=== PATIENT | male | born 1970 | race Caucasian/White ===

== ENCOUNTER 2018-02-15 15:46 | Emergency (ER) | payer BC, OTHER ==
[~2018-02-15] VITALS: Ht 182.9 cm; Wt 86.2 kg
[2018-02-15 15:46] VITALS: BP 136/76
[2018-02-15] MEDS ORDERED: Acetaminophen 500mg (ES) tab ORAL ONE (16:00)
[2018-02-15] MEDS ORDERED: Ketorolac 30mg Inj IV ONE (16:15)
--- NOTE | 2018-02-15 16:53 | Diagnostic Imaging Report ---
Indication: Cough Technique: One view of the chest Comparison: none Findings: Lungs and pleural spaces are clear. Heart size is normal Impression: No acute process
[2018-02-15 16:56] LABS: BASOPHILS % (AUTO) 0.8 % (0.0-2.0); HEMOGLOBIN 16.2 G/DL (14.2-18.0); LYMPHOCYTES % (AUTO) 5.5 % (20.0-45.0); MEAN CORPUSCULAR VOLUME 86 FL (80-99); MONOCYTES % (AUTO) 10.6 % (1.0-10.0); NEUTROPHILS % (AUTO) 83.2 % (45.0-75.0); PLATELET COUNT 209 K/UL (150-450); RED BLOOD COUNT 5.47 M/UL (4.70-6.10); RED CELL DISTRIBUTION WIDTH 10.4 % (11.6-14.8); WHITE BLOOD COUNT 9.1 K/UL (4.8-10.8)
[2018-02-15 17:08] LABS: ANION GAP 12 mmol/L (5-15); BLOOD UREA NITROGEN 12 mg/dL (7-18); CALCIUM 8.6 MG/DL (8.5-10.1); CARBON DIOXIDE 24 MMOL/L (21-32); CHLORIDE 101 MMOL/L (98-107); POTASSIUM 3.5 MMOL/L (3.5-5.1); SODIUM 137 MMOL/L (136-145)
[2018-02-15 17:13] LABS: ALANINE AMINOTRANSFERASE 45 U/L (12-78); ALBUMIN 3.8 G/DL (3.4-5.0); ALKALINE PHOSPHATASE 56 U/L (46-116); ASPARTATE AMINO TRANSFERASE 29 U/L (15-37); BILIRUBIN,TOTAL 0.8 MG/DL (0.2-1.0)
--- NOTE | 2018-02-15 17:58 | Emergency Room Report ---
History of Present Illness General Chief Complaint: Flu Like Symptoms Source: Patient Present Illness HPI 47-year-old male presents to the emergency department complaining of fever, chills, body aches 3 days and new onset of cough. Denies recent travel or ill contacts. Patient states he is not up-to-date with his flu vaccination. Patient reports history of bronchitis in the past. Patient denies history of immune compromise he states that he had been seen at [facility] before with bronchitis and "blood problem ". He is unable to give further details regarding the issue with his blood. Patient denies past medical history otherwise. Also reports having a 5 out of 10 severity headache he denies neck pain or stiffness and denies photophobia. He reports some decreased appetite and nausea, but no vomiting. Patient denies sore throat or ear pain. Patient reports some nasal congestion but states his body aches and fever and cough are his most prominent symptoms. Allergies: Coded Allergies: No Known Allergies (Unverified , 02/15/18) Patient History Past Medical History: see triage record Past Surgical History: none Pertinent Family History: none Reviewed Nursing Documentation: PMH: Agreed; PSxH: Agreed Nursing Documentation-PMH Past Medical History: No History, Except For Hx Asthma: Yes Review of Systems All Other Systems: negative except mentioned in HPI Physical Exam Vital Signs Date Time Temp Pulse Resp B/P (MAP) Pulse Ox O2 Delivery O2 Flow Rate FiO2 02/15/18 15:40 104.2 86 16 140/80 98 Room Air Sp02 EP Interpretation: reviewed, normal General Appearance: alert, GCS 15, non-toxic, moderate distress Head: normocephalic, atraumatic Eyes: bilateral eye normal inspection, bilateral eye PERRL ENT: hearing grossly normal, normal voice Neck: full range of motion, no meningismus Respiratory: chest non-tender, lungs clear, normal breath sounds, no rhonchi, no respiratory distress, no accessory muscle use, no wheezing, speaking full sentences Cardiovascular #1: regular rate, rhythm Gastrointestinal: non tender, soft Rectal: deferred Genitourinary: normal inspection Musculoskeletal: back normal, normal range of motion, non-tender Neurologic: alert, oriented x3, responsive, motor strength/tone normal, sensory intact, speech normal, grossly normal Psychiatric: judgement/insight normal Skin: normal color, no rash, warm/dry, well hydrated Lymphatic: no adenopathy Medical Decision Making PA Attestation Dr. Rayo is my supervising Physician whom patient management has been discussed with. Diagnostic Impression: Primary Impression: Influenza A ER Course 47-year-old male presents to the emergency department complaining of fever, chills, body aches 3 days and new onset of cough. Denies recent travel or ill contacts. Patient states he is not up-to-date with his flu vaccination. Patient reports history of bronchitis in the past. Patient denies history of immune compromise he states that he had been seen at [facility] before with bronchitis and "blood problem ". He is unable to give further details regarding the issue with his blood. Patient denies past medical history otherwise. Also reports having a 5 out of 10 severity headache he denies neck pain or stiffness and denies photophobia. He reports some decreased appetite and nausea, but no vomiting. Patient denies sore throat or ear pain. Patient reports some nasal congestion but states his body aches and fever and cough are his most prominent symptoms. Ddx considered but are not limited to URI, pneumonia, PE, strep pharyngitis, meningitis, influenza, OM/OE just to name a few. Vital signs: Pt. is Febrile with fever of 104 on presentation, otherwise WNL H&PE are most consistent with Viral Syndrome suspicious for Influenza - no meningeal signs, Lungs are clear and oropharynx is not involved, no evidence of bacterial infection at this time. ORDERS: CBC, CMP: unremarkable, electrolytes ok and no leukocytosis -Blood Cultures: Pending -Influenza A & B antigen: POSITIVE for INFLUENZA A ED INTERVENTIONS: - 1 Liter NS -Tylenol PO -Toradol IV - Zofran IV --PT. EDUCATION: --I discussed with this patient that I will be prescribing Tamiflu which is an antiviral. This medication is not always covered by insurance and is not always available at pharmacies. I educated patient that this medication has been shown to reduce symptoms by 1 day, and if unable to obtain there is no alternative, and to continue conservative treatment, otherwise return to the ED with worsening or new symptoms. DISCHARGE: At this time pt. is stable for d/c to home. Will provide printed patient care instructions, and any necessary prescriptions. Care plan and follow up instructions have been discussed with the patient prior to discharge. Labs Test 02/15/18 16:25 White Blood Count 9.1 K/UL (4.8-10.8) Red Blood Count 5.47 M/UL (4.70-6.10) Hemoglobin 16.2 G/DL (14.2-18.0) Hematocrit 47.0 % (42.0-52.0) Mean Corpuscular Volume 86 FL (80-99) Mean Corpuscular Hemoglobin 29.7 PG (27.0-31.0) Mean Corpuscular Hemoglobin Concent 34.5 G/DL (32.0-36.0) Red Cell Distribution Width 10.4 % (11.6-14.8) Platelet Count 209 K/UL (150-450) Mean Platelet Volume 6.9 FL (6.5-10.1) Neutrophils (%) (Auto) 83.2 % (45.0-75.0) Lymphocytes (%) (Auto) 5.5 % (20.0-45.0) Monocytes (%) (Auto) 10.6 % (1.0-10.0) Eosinophils (%) (Auto) 0.0 % (0.0-3.0) Basophils (%) (Auto) 0.8 % (0.0-2.0) Sodium Level 137 MMOL/L (136-145) Potassium Level 3.5 MMOL/L (3.5-5.1) Chloride Level 101 MMOL/L (98-107) Carbon Dioxide Level 24 MMOL/L (21-32) Anion Gap 12 mmol/L (5-15) Blood Urea Nitrogen 12 mg/dL (7-18) Creatinine 1.0 MG/DL (0.55-1.30) Estimat Glomerular Filtration Rate > 60 mL/min (>60) Glucose Level 108 MG/DL (74-106) Lactic Acid Level 1.30 mmol/L (0.4-2.0) Calcium Level 8.6 MG/DL (8.5-10.1) Total Bilirubin 0.8 MG/DL (0.2-1.0) Aspartate Amino Transf (AST/SGOT) 29 U/L (15-37) Alanine Aminotransferase (ALT/SGPT) 45 U/L (12-78) Alkaline Phosphatase 56 U/L (46-116) Total Protein 7.6 G/DL (6.4-8.2) Albumin 3.8 G/DL (3.4-5.0) Globulin 3.8 g/dL Albumin/Globulin Ratio 1.0 (1.0-2.7) Last Vital Signs Date Time Temp Pulse Resp B/P (MAP) Pulse Ox O2 Delivery O2 Flow Rate FiO2 02/15/18 17:02 102.6 02/15/18 15:46 84 18 136/76 99 Room Air Disposition: HOME, SELF-CARE Condition: Stable Scripts Methocarbamol* (ROBAXIN-750*) 750 Mg Tablet 750 MG PO TID for 7 Days, #21 TAB 0 Refills Prov: Radha Rosales 02/15/18 D-Methorphan Hb/Prometh Hcl* (PROMETHAZINE-DM SYRUP*) 118 Ml Syrup 5 ML ORAL Q6H PRN for For Cough, #120 ML 0 Refills Prov: Radha Rosales 02/15/18 Oseltamivir Phosphate (Tamiflu) 75 Mg Capsule 75 MG ORAL TWICE A DAY for 5 Days, CAP Prov: Radha Rosales 02/15/18 Naproxen* (NAPROXEN*) 500 Mg Tablet 500 MG ORAL TWICE A DAY, #30 TAB Prov: Radha Rosales 02/15/18 Referrals: [facility],REFERRING (PCP) Patient Instructions: Influenza, Adult Additional Instructions: Take medications as directed. Follow up with a Primary Care Provider in 3-5 days, even if your symptoms have resolved. --Please review list of primary care clinics, if you do not already have a primary care provider Return sooner to ED if new symptoms occur, or current symptoms become worse. Do not drink alcohol, drive, or operate heavy machinery while taking Cough Syrup as this may cause drowsiness. - Please note that this Emergency Department Report was dictated using [employer] technology software, occasionally this can lead to erroneous entry secondary to interpretation by the dictation equipment. Radha Rosales Feb 15, 2018 17:58
[2018-02-15] MEDS ORDERED: ROBAXIN-750750 MG PO (18:00)
[2018-02-15] MEDS ORDERED: NAPROXEN500 M2 ORAL (18:00)
[2018-02-15] MEDS ORDERED: PROMETHAZINE-D118 ML ORAL (18:00)
[2018-02-15] MEDS ORDERED: TAMIFLU75 MG ORAL (18:00)
[2018-02-15 18:13] VITALS: BP 135/78
== END 2018-02-15 18:17 | disposition home or self-care (01) ==
LOC: EDBD 15:46 → EMR 16:15
DX: J09.X2 Influenza due to identified novel influenza A virus with other respiratory manifestations (principal); J45.909 Unspecified asthma, uncomplicated
CPT/HCPCS: 36415; 71045; 80053; 83605; 85025; 86710; 87040; 96361; 96374; 96375; 99284; J1885; J2405